=== PATIENT | female | born 1990 | race Caucasian/White ===

== ENCOUNTER 2016-06-14 01:26 | Emergency (ER) | payer OTHER ==
[~2016-06-14] VITALS: Ht 157.5 cm; Wt 67.3 kg
[~2016-06-14 01:26] MED LIST changes: -ZANTAC 7575 MG PO; -ZOFRAN 4MG T4 MG/TAB
[2016-06-14 01:35] VITALS: BP 116/63; PULSE 65; TEMP 97.8
== END 2016-06-14 02:39 | disposition home or self-care (01) ==
LOC: COL.ER 01:26
DX: S93.401A Sprain of unspecified ligament of right ankle, initial encounter (principal); W01.0XXA Fall on same level from slipping, tripping and stumbling without subsequent striking against object, initial encounter

== ENCOUNTER → 2016-06-14 | Outpatient (REF) ==
[~2016-06-14] MED LIST: ALLEGRA-D 24HR1 T24 PO; BCP; DEPAKOTE 250MG250 MG PO; EPIPEN 2-PAK1 MG/ML IM; FLEXERIL 1010 MG/TAB PO; LEXAPRO 5MG5 MG PO; LOPRESSOR 225 MG/TAB PO; MICROGESTIN 1.51 TAB PO; MIDRIN 325 MG-11 CAP PO; MULTI VITAMINS1 TAB PO; NO HOME MEDICATIONS; NORCO 325 MG-7.1 TAB PO; ONE DAILY1 TA2 PO; PHENERGAN 25 TA25 MG PO; PREDNISONE20 MG PO; QUASENSE 30 MCG1 TAB PO; SKYLA13.5 MG IY; VENTOLIN0.09 MG IH; VESTURA PO; ZANTAC 7575 MG PO; ZITHROMAX 250M250 MG PO; ZOFRAN 4MG T4 MG/TAB; ZYRTEC 10MG10 MG PO; [UNRECOGNIZED DRUG - REMARK]
== END ==
LOC: WSOH 14:35
DX: Z01.83 Encounter for blood typing (principal)

== ENCOUNTER 2016-07-11 10:56 | Outpatient (RCR) | payer OTHER | END 2016-09-06 13:28 | disposition home or self-care (01) | LOC: WSOH 10:56 | DX: S93.491D Sprain of other ligament of right ankle, subsequent encounter (principal); W18.43XD Slipping, tripping and stumbling without falling due to stepping from one level to another, subsequent encounter ==

== ENCOUNTER → 2016-07-26 | Outpatient (REF) ==
[~2016-07-26] MED LIST changes: +ZANTAC 7575 MG PO; +ZOFRAN 4MG T4 MG/TAB
== END ==
LOC: WSOH 11:15
DX: Z01.89 Encounter for other specified special examinations (principal)

== ENCOUNTER 2016-11-05 06:58 | Emergency (ER) | payer OTHER ==
[~2016-11-05] VITALS: Ht 157.5 cm; Wt 63.6 kg
[~2016-11-05 06:58] MED LIST changes: -ZANTAC 7575 MG PO; -ZOFRAN 4MG T4 MG/TAB
[2016-11-05 07:00] VITALS: BP 115/81; PULSE 61; TEMP 98.1
[2016-11-05] MEDS ORDERED: ZANTAC 7575 MG PO (07:34)
[2016-11-05] MEDS ORDERED: ZOFRAN 4MG T4 MG/TAB (07:42)
== END 2016-11-05 08:20 | disposition home or self-care (01) ==
LOC: COL.ER 06:58
DX: G43.909 Migraine, unspecified, not intractable, without status migrainosus (principal); R11.2 Nausea with vomiting, unspecified
CPT/HCPCS: J1200; J1885; J2765; J7030

== ENCOUNTER 2017-03-26 15:24 | Outpatient (CLI) | payer BC ==
[~2017-03-26] VITALS: Ht 157.5 cm; Wt 67.0 kg
[~2017-03-26 15:24] MED LIST changes: +ZANTAC 7575 MG PO; +ZOFRAN 4MG T4 MG/TAB
[2017-03-26 15:58] LABS: HEMATOCRIT 43.5 % (37.0-47.0); HEMOGLOBIN 14.4 g/dl (12.5-16.0)
[2017-03-26 16:33] VITALS: BP 106/65; PULSE 71; TEMP 97.8
[2017-03-26 17:55] VITALS: BP 106/54; PULSE 67; TEMP 98.4
== END 2017-03-26 17:55 | disposition home or self-care (01) ==
LOC: EUO 15:24
PROVIDERS: Family Medicine
DX: N93.8 Other specified abnormal uterine and vaginal bleeding (principal); I95.9 Hypotension, unspecified; R42 Dizziness and giddiness
CPT/HCPCS: J7030

== ENCOUNTER 2017-08-10 14:27 | Emergency (ER) | payer BC ==
[~2017-08-10] VITALS: Ht 157.5 cm; Wt 61.4 kg
[2017-08-10 14:35] VITALS: BP 111/65; TEMP 98.7
[2017-08-10] MEDS ORDERED: LEXAPRO 10MG10 MG PO (14:42)
[2017-08-10] MEDS ORDERED: PRENATAL 191 TAB PO (14:43)
[2017-08-10] MEDS ORDERED: ZANTAC 150MG T150 MG PO (14:43)
[2017-08-10] MEDS ORDERED: FIORICET 325 MG1 TA1 PO (14:44)
[2017-08-10 16:18] VITALS: PULSE 65
== END 2017-08-10 16:18 | disposition home or self-care (01) ==
LOC: COL.ER 14:27
DX: G43.909 Migraine, unspecified, not intractable, without status migrainosus (principal)
CPT/HCPCS: J1200; J1885; J2405; J3010; J7030

== ENCOUNTER 2017-12-01 14:09 | Emergency (ER) | payer BC ==
[~2017-12-01] VITALS: Ht 157.5 cm; Wt 62.7 kg
[~2017-12-01 14:09] MED LIST changes: +FIORICET 325 MG1 TA1 PO; +LEXAPRO 10MG10 MG PO; +PRENATAL 191 TAB PO; +ZANTAC 150MG T150 MG PO
[2017-12-01 14:13] VITALS: BP 113/81; TEMP 99
[2017-12-01] MEDS ORDERED: ZOFRAN ODT4 MG PO (16:49)
[2017-12-01 16:58] VITALS: PULSE 79
== END 2017-12-01 17:00 | disposition home or self-care (01) ==
LOC: COL.ER 14:09
DX: G43.909 Migraine, unspecified, not intractable, without status migrainosus (principal)
CPT/HCPCS: J1200; J1885; J2405; J3010; J7030

== ENCOUNTER → 2017-12-11 | Outpatient (CLI) | payer BC ==
[~2017-12-11] MED LIST changes: +ZOFRAN ODT4 MG PO
== END ==
LOC: COL.RAD 10:02
DX: Z31.41 Encounter for fertility testing (principal)
CPT/HCPCS: Q9967

== ENCOUNTER 2017-12-23 00:58 | Emergency (ER) | payer BC ==
[~2017-12-23] VITALS: Ht 157.5 cm; Wt 63.6 kg
[2017-12-23 01:01] VITALS: BP 112/87; TEMP 98
[2017-12-23] MEDS ORDERED: AMOXICILLIN 8751 TAB PO (01:03)
[2017-12-23 02:20] VITALS: PULSE 58
== END 2017-12-23 02:20 | disposition home or self-care (01) ==
LOC: COL.ER 00:58
DX: G43.909 Migraine, unspecified, not intractable, without status migrainosus (principal)
CPT/HCPCS: J1885; J2300; J2405; J7030

== ENCOUNTER 2018-03-15 12:57 | Emergency (ER) | payer BC ==
[~2018-03-15] VITALS: Ht 157.5 cm; Wt 73.2 kg
[~2018-03-15 12:57] MED LIST changes: +AMOXICILLIN 8751 TAB PO
[2018-03-15 13:25] VITALS: TEMP 97.8
[2018-03-15 14:12] LABS: BASO % 0.4 % (0.0-2.0); EOS # 0.2 (0.0-0.7); EOS % 1.6 % (0-4.0); GRAN % 70.5 % (42.2-75.2); HEMOGLOBIN 11.8 g/dl (12.5-16.0); LYMPH # 2.4 (1.2-3.4); LYMPH % 20.8 % (20.0-51.0); MEAN CELL VOLUME 91 fl (80.0-100.0); MEAN CORPUSCULAR HEMOGLOBIN 30 pg (27.0-31.0); MEAN CORPUSCULAR HGB CONC 33 g/dl (33.0-37.0); MEAN PLATELET VOLUME 10.3 fl (7.4-10.4); MONO # 0.7 (0.1-0.6); MONO % 6.1 % (1.7-9.3); PLATELET COUNT 229 K/mm3 (130-400); RED BLOOD COUNT 3.89 M/mm3 (4.10-5.30); REDCELL DISTRIBUTION WIDTH-CV 12.6 % (11.5-14.5)
[2018-03-15 14:16] LABS: HEMATOCRIT 35.4 % (37.0-47.0)
[2018-03-15 14:30] LABS: COLLECTION METHOD CLEAN CATCH
[2018-03-15 14:38] LABS: MUCOUS Present /lpf; PH 6 (5-8); SQUAMOUS EPITHELIAL 0-2 /hpf; URINE APPEARANCE Clear; URINE BACTERIA Rare /hpf; URINE BILIRUBIN Negative (NEGATIVE); URINE BLOOD Negative (NEGATIVE); URINE COLOR Yellow; URINE GLUCOSE Negative (NEGATIVE); URINE KETONE Negative (NEGATIVE); URINE LEUKOCYTE ESTERASE Negative (NEGATIVE); URINE NITRATE Negative (NEGATIVE); URINE PROTEIN(semi-quant) Negative (NEGATIVE); URINE RBC 0-2 /hpf; URINE UROBILINOGEN Negative (NEGATIVE)
[2018-03-15 15:36] VITALS: BP 105/70; PULSE 72
== END 2018-03-15 15:36 | disposition home or self-care (01) ==
LOC: COL.ER 12:57
PROVIDERS: Physician Assistant
DX: R11.10 Vomiting, unspecified (principal); R55 Syncope and collapse; G43.909 Migraine, unspecified, not intractable, without status migrainosus; Z90.89 Acquired absence of other organs
CPT/HCPCS: J2405; J7030

== ENCOUNTER → 2018-07-08 | Outpatient (RCR) | payer BC | END | disposition home or self-care (01) | LOC: WSPT → WSC 05-11 13:00 → WSPT 05-13 13:30 → WSC 05-18 13:00 → WSPT 05-20 13:00 → WSC 05-25 11:00 → WSPT 05-27 08:45 → WSC 06-01 11:00 → WSPT 06-11 11:15 → WSC 06-18 11:15 → WSPT 06-23 11:15 | DX: M54.5 Low back pain (principal); Z79.899 Other long term (current) drug therapy ==

== ENCOUNTER 2018-08-17 18:12 | Emergency (ER) | payer BC ==
[~2018-08-17] VITALS: Ht 157.5 cm; Wt 81.8 kg
[2018-08-17 18:14] VITALS: TEMP 97.8
--- NOTE | 2018-08-17 18:18 | NUR ---
Pt seen in ED for reports of vomiting x2 days. [address] Wilson. Pt denies any leaking of fluid, contractions or vaginal bleeding at this time. Pt reports normal movement. EFM and toco monitors placed. Audible movement heard. No ctx noted on toco monitors or reports by pt. See monitoring charting for FHR details.
[2018-08-17] MEDS ORDERED: CALCIUM CARBON650 M2 (18:59)
[2018-08-17] MEDS ORDERED: ZYRTEC5 MG PO (18:59)
[2018-08-17] MEDS ORDERED: PROTONIX20 MG PO (18:59)
[2018-08-17 19:06] LABS: BASO % 0.2 % (0.0-2.0); EOS # 0.2 (0.0-0.7); EOS % 1.6 % (0-4.0); GRAN # 7.6 (1.4-6.5); GRAN % 70.3 % (42.2-75.2); HEMOGLOBIN 11.6 g/dl (12.5-16.0); LYMPH # 2.1 (1.2-3.4); LYMPH % 19.3 % (20.0-51.0); MEAN CELL VOLUME 88 fl (80.0-100.0); MEAN CORPUSCULAR HEMOGLOBIN 29 pg (27.0-31.0); MEAN CORPUSCULAR HGB CONC 33 g/dl (33.0-37.0); MEAN PLATELET VOLUME 11.3 fl (7.4-10.4); MONO # 0.8 (0.1-0.6); MONO % 7.8 % (1.7-9.3); PLATELET COUNT 213 K/mm3 (130-400); RED BLOOD COUNT 3.99 M/mm3 (4.10-5.30); REDCELL DISTRIBUTION WIDTH-CV 13.6 % (11.5-14.5)
[2018-08-17 19:21] LABS: BILIRUBIN,TOTAL 0.4 mg/dL (0.0-1.0); CALCIUM 8.7 mg/dL (8.4-10.2); CREATININE, serum 0.63 (0.52-1.25); POTASSIUM 3.6 mmol/L (3.4-5.0); TOTAL PROTEIN 5.8 gm/dL (6.4-8.2)
--- NOTE | 2018-08-17 19:27 | NUR ---
192- Prolonged acceleration noted for 3 minutes with FHR up to 180's for 1 minute during acceleration. 1929- FHR return to baseline 130 with moderate variability and no decelerations. 1941- EFM strip complete and placed on pt's ED chart. No more prolonged accelerations noted. Encouraged pt to keep scheduled appointments and drink plenty of fluid to stay hydrated. Call or return to OB unit for concerns with contractions, leaking of fluid, vaginal bleeding or decreased movement.
[2018-08-17 20:29] LABS: COLLECTION METHOD CLEAN CATCH
[2018-08-17 20:44] LABS: MUCOUS Present /lpf; PH 6 (5-8); SQUAMOUS EPITHELIAL 0-2 /hpf; URINE APPEARANCE Clear; URINE BACTERIA Rare /hpf; URINE BILIRUBIN Negative (NEGATIVE); URINE BLOOD Negative (NEGATIVE); URINE COLOR Yellow; URINE GLUCOSE Negative (NEGATIVE); URINE KETONE Trace (NEGATIVE); URINE LEUKOCYTE ESTERASE Negative (NEGATIVE); URINE NITRATE Negative (NEGATIVE); URINE PROTEIN(semi-quant) Negative (NEGATIVE); URINE RBC 0-2 /hpf; URINE UROBILINOGEN Negative (NEGATIVE)
[2018-08-17] MEDS ORDERED: MACROBID 1100 MG/CAP PO (20:51)
[2018-08-17 21:02] VITALS: BP 104/72; PULSE 70
== END 2018-08-17 21:02 | disposition home or self-care (01) ==
LOC: COL.ER 18:12
PROVIDERS: Physician Assistant
DX: O26.893 Other specified pregnancy related conditions, third trimester (principal); O21.9 Vomiting of pregnancy, unspecified; Z3A.36 36 weeks gestation of pregnancy
CPT/HCPCS: J2405; J7030

== ENCOUNTER 2018-08-27 14:30 | Outpatient (RCR) | payer BC ==
[~2018-08-27 14:30] MED LIST changes: +CALCIUM CARBON650 M2; +MACROBID 1100 MG/CAP PO; +PROTONIX20 MG PO; +ZYRTEC5 MG PO
== END 2018-08-27 15:08 | disposition home or self-care (01) ==
LOC: WSPT 14:30
DX: M54.5 Low back pain (principal); M25.559 Pain in unspecified hip; R26.89 Other abnormalities of gait and mobility; Z33.1 Pregnant state, incidental

== ENCOUNTER 2018-09-10 07:04 | Inpatient (IN) | payer BC ==
[2018-09-10] VITALS (40 sets, daily range): BP systolic 102–133; BP diastolic 56–85; PULSE 64–118; TEMP 97.5–98.9
[~2018-09-10] VITALS: Ht 157.5 cm; Wt 87.3 kg
--- NOTE | 2018-09-10 07:10 | NUR ---
Patient ambulatory onto unit for scheduled induction of labor with at side. Patient oriented to room, changes into gown, plan of care discussed. Patient reports good movement, denies contractions, leaking of fluid, or vaginal bleeding. EFMs on, VS taken. IV started in left hand, labs drawn, LR infusing. Consents signed. Admission assessment completed. Pitocin started per orders. Questions answered. at bedside. Call light within reach.
--- NOTE | 2018-09-10 08:00 | NUR ---
Patient up to bathroom. Reports feeling tightening with contractions, denies pain or needs at this time. at bedside. Call light within reach.
[2018-09-10 08:02] LABS: BASO % 0.3 % (0.0-2.0); EOS # 0.3 (0.0-0.7); EOS % 2.6 % (0-4.0); GRAN # 7.8 (1.4-6.5); GRAN % 66.8 % (42.2-75.2); HEMOGLOBIN 12.9 g/dl (12.5-16.0); LYMPH # 2.9 (1.2-3.4); LYMPH % 24.3 % (20.0-51.0); MEAN CELL VOLUME 87 fl (80.0-100.0); MEAN CORPUSCULAR HEMOGLOBIN 29 pg (27.0-31.0); MEAN CORPUSCULAR HGB CONC 33 g/dl (33.0-37.0); MEAN PLATELET VOLUME 12.1 fl (7.4-10.4); MONO # 0.6 (0.1-0.6); PLATELET COUNT 223 K/mm3 (130-400); RED BLOOD COUNT 4.47 M/mm3 (4.10-5.30); REDCELL DISTRIBUTION WIDTH-CV 14.2 % (11.5-14.5)
--- NOTE | 2018-09-10 09:00 | NUR ---
Patient updated to not being able to round until lunchtime. Patient verbalizes understanding. SVE 3-//-2. Patient up to bathroom. Reports feeling cramping with contractions but denies need for pain intervention at this time. Call light within reach.
--- NOTE | 2018-09-10 10:00 | NUR ---
1000: Patient calls out requesting epidural placement. Roberto notified. 1010: Patient sitting up for epidural. Roberto POWELL at bedside. 1019: Lidocaine. 1023: Single Shot given by Roberto POWELL, no adverse reactions noted. 1024: Epidural Catheter placed. 1025: Test Dose given, no adverse reactions noted. 1030: Patient repositioned to left tilt. Plan of care discussed. Questions answered. remains at bedside. Call light within reach.
--- NOTE | 2018-09-10 11:00 | NUR ---
Patient comfortable with epidural. SROM at 1050, moderate amount of clear fluid noted. SVE /-2. Samuel catheter placed by Awa Student Nurse with assist by Maxwell SIMON. Patient repositioned to right tilt, peanut ball in place.
--- NOTE | 2018-09-10 12:30 | NUR ---
at bedside. SVE /+1. Patient repositioned to left tilt with peanut ball in place. Denies pain or pressure at this time. Encouraged to rest. at bedside. Call light within reach.
--- NOTE | 2018-09-10 14:55 | NUR ---
1320: Complete/+2. 1325: Initial push. This RN remains at bedside. 1330: notified of patient complete and pushing. 1412: notified of pushing progress, requested for delivery. 1419: at bedside for delivery. Miguel RN requested at bedside for delivery. 1432: Spontaneous vaginal delivery of viable female infant over 2nd degree laceration assisted by . Care of infant assumed by Miguel RN. Pitocin off. 1436: Spontaneous delivery of placenta. Fundus firm at D1, lochia WNL. Pitocin infusing at 333ml/hr. 2nd degree laceration repaired by using 3-[address]-1. Red joaquin catheter used to drain bladder by . 1455: Pericare performed. Ice pack in place. Recovery period started. Fundus firm, scant lochia.
[2018-09-11 04:00] VITALS: BP 114/61; PULSE 65; TEMP 97.8
[2018-09-11 07:49] VITALS: BP 112/82; PULSE 75; TEMP 98.2
[2018-09-11 07:58] LABS: HEMOGLOBIN 11.4 g/dl (12.5-16.0)
[2018-09-11] MEDS ORDERED: IBU600 MG PO (08:18)
--- NOTE | 2018-09-11 09:15 | NUR ---
Initial visit; Parents thanked Tablet Tester for offering congratulations and God's blessings for the of their daughter. Tablet Tester let them know how happy we are to have people we work with here with us for such happy occasions.
[2018-09-11 16:45] VITALS: BP 125/74; PULSE 82; TEMP 98.1
[2018-09-11 20:20] VITALS: BP 108/75; PULSE 83
[2018-09-12 09:30] VITALS: BP 122/74; PULSE 78; TEMP 98.1
--- NOTE | 2018-09-12 10:50 | NUR ---
PATIENT CALLED THIS NURSE TO THE ROOM FOR A CLOT APPROX THE SIZE OF A WALNUT. STATED SHE HADN'T GOTTEN UP YET THIS MORNING, JUST FINISHED AND NOTICED IT COMING OUT WHEN SHE WALKED TO THE BATHROOM. THIS NURSE ASSESSED CLOT. ASSESSED FUNDUS, FIRM, D1, MIDLINE. NO FREE FLOW BLEEDING NOTED AT THIS TIME. PATIENT EDUCATED ON FINDINGS AT HOME AND WHEN TO CALL [facility]. PATIENT STATED UNDERSTANDING. STILL WANTED TO D/C [facility].
== END 2018-09-12 11:15 | disposition home or self-care (01) | DRG 807 ==
LOC: LDR 07:04 → OB 23:17
PROVIDERS: ADMIT Obstetrics & Gynecology
PROC: 10E0XZZ Delivery of Products of Conception, External Approach (ICD-10-PCS; principal; 2018-09-10)
PROC: 0KQM0ZZ Repair Perineum Muscle, Open Approach (ICD-10-PCS; 2018-09-10)
PROC: 3E033VJ Introduction of Other Hormone into Peripheral Vein, Percutaneous Approach (ICD-10-PCS; 2018-09-10)
DX: O48.0 Post-term pregnancy (principal); Z37.0 Single live birth; Z3A.40 40 weeks gestation of pregnancy; O26.893 Other specified pregnancy related conditions, third trimester; Z67.91 Unspecified blood type, Rh negative; O70.1 Second degree perineal laceration during delivery; O99.344 Other mental disorders complicating childbirth; F32.9 Major depressive disorder, single episode, unspecified; K21.9 Gastro-esophageal reflux disease without esophagitis
CPT/HCPCS: J2405; J2590; J2791; J2795; J7120

== ENCOUNTER 2019-01-19 16:07 | Emergency (ER) | payer BC ==
[~2019-01-19] VITALS: Ht 157.5 cm; Wt 75.0 kg
[~2019-01-19 16:07] MED LIST changes: +IBU600 MG PO
[2019-01-19 16:11] VITALS: BP 117/82; TEMP 98.8
[2019-01-19] MEDS ORDERED: PAXIL 20MG20 MG PO (16:27)
[2019-01-19] MEDS ORDERED: FIORICET 325 MG1 TA1 PO (16:27)
[2019-01-19] MEDS ORDERED: NORCO 325 MG-51 TAB PO (16:29)
[2019-01-19] MEDS ORDERED: AMOXICILLIN 8751 TAB PO (16:29)
[2019-01-19 16:34] VITALS: PULSE 89
== END 2019-01-19 16:34 | disposition home or self-care (01) ==
LOC: COL.ER 16:07
DX: N61.0 Mastitis without abscess (principal); G43.909 Migraine, unspecified, not intractable, without status migrainosus; Z90.49 Acquired absence of other specified parts of digestive tract; Z88.1 Allergy status to other antibiotic agents

== ENCOUNTER 2019-01-31 15:10 | Emergency (ER) | payer BC ==
[~2019-01-31] VITALS: Ht 157.5 cm; Wt 75.0 kg
[~2019-01-31 15:10] MED LIST changes: +NORCO 325 MG-51 TAB PO; +PAXIL 20MG20 MG PO
[2019-01-31 15:16] VITALS: BP 114/73; TEMP 97.6
[2019-01-31 18:21] VITALS: PULSE 62
== END 2019-01-31 18:21 | disposition home or self-care (01) ==
LOC: COL.ER 15:10
DX: G43.909 Migraine, unspecified, not intractable, without status migrainosus (principal); Z90.49 Acquired absence of other specified parts of digestive tract
CPT/HCPCS: J1170; J2405; J3010; J7030

== ENCOUNTER 2019-09-03 14:14 | Emergency (ER) | payer BC ==
[~2019-09-03] VITALS: Ht 157.5 cm; Wt 70.5 kg
[2019-09-03 14:23] VITALS: TEMP 98.2
[2019-09-03 16:53] VITALS: BP 100/64; PULSE 72
== END 2019-09-03 16:58 | disposition home or self-care (01) ==
LOC: COL.ER 14:14
DX: G43.909 Migraine, unspecified, not intractable, without status migrainosus (principal); Z90.89 Acquired absence of other organs
CPT/HCPCS: J1170; J2405; J3010; J7030

== ENCOUNTER 2020-02-11 14:37 | Emergency (ER) | payer BC ==
[~2020-02-11] VITALS: Ht 157.5 cm; Wt 75.0 kg
[2020-02-11 14:54] VITALS: TEMP 97.9
[2020-02-11] MEDS ORDERED: PEPCID40 MG PO (16:16)
[2020-02-11] MEDS ORDERED: MIRENA52 MG IY (16:17)
[2020-02-11] MEDS ORDERED: PAXIL 20MG20 MG PO (16:17)
[2020-02-11 18:30] VITALS: BP 126/82; PULSE 82
== END 2020-02-11 18:30 ==
LOC: COL.ER 14:37
DX: G43.909 Migraine, unspecified, not intractable, without status migrainosus (principal); Z88.8 Allergy status to other drugs, medicaments and biological substances
CPT/HCPCS: J1170; J2405; J7030

== ENCOUNTER 2020-04-01 07:27 | Emergency (ER) | payer BC ==
[~2020-04-01] VITALS: Ht 157.5 cm; Wt 75.0 kg
[~2020-04-01 07:27] MED LIST changes: +MIRENA52 MG IY; +PEPCID40 MG PO
[2020-04-01 07:35] VITALS: TEMP 98.1
[2020-04-01 08:17] LABS: BASO % 0.3 % (0.0-2.0); EOS # 0.4 (0.0-0.7); EOS % 4.5 % (0-4.0); GRAN # 5.5 (1.4-6.5); HEMATOCRIT 40.4 % (37.0-47.0); HEMOGLOBIN 13.1 g/dl (12.5-16.0); LYMPH # 2.9 (1.2-3.4); LYMPH % 30.1 % (20.0-51.0); MEAN CELL VOLUME 91 fl (80.0-100.0); MEAN CORPUSCULAR HEMOGLOBIN 30 pg (27.0-31.0); MEAN CORPUSCULAR HGB CONC 32 g/dl (33.0-37.0); MEAN PLATELET VOLUME 10.2 fl (7.4-10.4); MONO # 0.6 (0.1-0.6); MONO % 6.7 % (1.7-9.3); PLATELET COUNT 276 K/mm3 (130-400); RED BLOOD COUNT 4.43 M/mm3 (4.10-5.30); REDCELL DISTRIBUTION WIDTH-CV 12.9 % (11.5-14.5)
[2020-04-01 08:17] LABS: COLLECTION METHOD CLEAN CATCH
[2020-04-01 08:25] LABS: ALBUMIN 4.3 gm/dL (3.5-5.0); BILIRUBIN,TOTAL 0.5 mg/dL (0.0-1.0); CALCIUM 9.3 mg/dL (8.4-10.2); CREATININE, serum 0.86 (0.52-1.25); POTASSIUM 3.8 mmol/L (3.4-5.0); TOTAL PROTEIN 6.7 gm/dL (6.4-8.2)
[2020-04-01 08:28] LABS: MUCOUS Present /lpf; PH 5 (5-8); SQUAMOUS EPITHELIAL 0-2 /hpf; URINE APPEARANCE Hazy; URINE BACTERIA Rare /hpf; URINE BILIRUBIN Negative (NEGATIVE); URINE BLOOD Negative (NEGATIVE); URINE COLOR Yellow; URINE GLUCOSE Negative (NEGATIVE); URINE KETONE Negative (NEGATIVE); URINE LEUKOCYTE ESTERASE Negative (NEGATIVE); URINE NITRATE Negative (NEGATIVE); URINE PROTEIN(semi-quant) Negative (NEGATIVE); URINE RBC 0-2 /hpf; URINE UROBILINOGEN Negative (NEGATIVE); URINE WBC 0-2 /hpf
[2020-04-01] MEDS ORDERED: VOLTAREN 75 DR75 MG PO (11:50)
[2020-04-01] MEDS ORDERED: NORCO 325 MG-51 TAB PO (11:50)
[2020-04-01] MEDS ORDERED: ZOFRAN ODT4 MG PO (12:07)
[2020-04-01 12:10] VITALS: BP 125/82; PULSE 91
== END 2020-04-01 12:10 | disposition home or self-care (01) ==
LOC: COL.ER 07:27
PROVIDERS: Emergency Medicine
DX: R10.9 Unspecified abdominal pain (principal); Z88.8 Allergy status to other drugs, medicaments and biological substances
CPT/HCPCS: J1170; J1885; J2405; J3010; J7030; Q9967

== ENCOUNTER 2020-06-03 10:12 | Emergency (ER) | payer BC ==
[~2020-06-03] VITALS: Ht 157.5 cm; Wt 77.3 kg
[~2020-06-03 10:12] MED LIST changes: +VOLTAREN 75 DR75 MG PO
[2020-06-03 10:27] VITALS: BP 114/80; TEMP 97.7
[2020-06-03] MEDS ORDERED: PEPCID40 MG PO (11:13)
[2020-06-03 13:04] VITALS: PULSE 91
== END 2020-06-03 13:01 | disposition home or self-care (01) ==
LOC: COL.ER 10:12
DX: G43.909 Migraine, unspecified, not intractable, without status migrainosus (principal); R04.0 Epistaxis; Z86.79 Personal history of other diseases of the circulatory system; Z88.8 Allergy status to other drugs, medicaments and biological substances
CPT/HCPCS: J1170; J2405; J3010; J7030

== ENCOUNTER 2020-06-23 18:56 | Emergency (ER) | payer BC ==
[~2020-06-23] VITALS: Ht 157.5 cm; Wt 77.3 kg
[2020-06-23 19:02] VITALS: TEMP 97.4
[2020-06-23 19:20] LABS: BASO # 0.1 (0.0-0.2); BASO % 0.5 % (0.0-2.0); EOS # 0.5 (0.0-0.7); EOS % 4.8 % (0-4.0); GRAN # 4.9 (1.4-6.5); GRAN % 51.8 % (42.2-75.2); HEMATOCRIT 39.8 % (37.0-47.0); HEMOGLOBIN 13.5 g/dl (12.5-16.0); LYMPH # 3.5 (1.2-3.4); LYMPH % 36.7 % (20.0-51.0); MEAN CELL VOLUME 88 fl (80.0-100.0); MEAN CORPUSCULAR HEMOGLOBIN 30 pg (27.0-31.0); MEAN CORPUSCULAR HGB CONC 34 g/dl (33.0-37.0); MONO # 0.6 (0.1-0.6); MONO % 5.9 % (1.7-9.3); PLATELET COUNT 345 K/mm3 (130-400); RED BLOOD COUNT 4.54 M/mm3 (4.10-5.30); REDCELL DISTRIBUTION WIDTH-CV 12.3 % (11.5-14.5)
[2020-06-23 19:35] LABS: ALBUMIN 4.6 gm/dL (3.5-5.0); BILIRUBIN,TOTAL 0.3 mg/dL (0.0-1.0); C-REACTIVE PROTEIN 0.7 mg/dL (0.0-0.9); CALCIUM 9.6 mg/dL (8.4-10.2); CREATININE, serum 0.81 (0.52-1.25); TOTAL PROTEIN 7.7 gm/dL (6.4-8.2)
[2020-06-23] MEDS ORDERED: PROTONIX20 MG PO (19:48)
[2020-06-23 19:49] LABS: COLLECTION METHOD CLEAN CATCH
[2020-06-23 19:55] LABS: PH 8 (5-8); SQUAMOUS EPITHELIAL 0-2 /hpf; URINE APPEARANCE Clear; URINE BACTERIA None Seen /hpf; URINE BILIRUBIN Negative (NEGATIVE); URINE BLOOD Negative (NEGATIVE); URINE COLOR Yellow; URINE GLUCOSE Negative (NEGATIVE); URINE KETONE Negative (NEGATIVE); URINE LEUKOCYTE ESTERASE Negative (NEGATIVE); URINE NITRATE Negative (NEGATIVE); URINE PROTEIN(semi-quant) Negative (NEGATIVE); URINE RBC 0-2 /hpf; URINE UROBILINOGEN Negative (NEGATIVE)
[2020-06-23 23:10] VITALS: BP 123/84; PULSE 81
== END 2020-06-23 23:10 | disposition home or self-care (01) ==
LOC: COL.ER 18:56
PROVIDERS: Nurse Practitioner
DX: O26.891 Other specified pregnancy related conditions, first trimester (principal); R10.31 Right lower quadrant pain; R00.0 Tachycardia, unspecified; Z3A.00 Weeks of gestation of pregnancy not specified; Z86.79 Personal history of other diseases of the circulatory system; Z88.8 Allergy status to other drugs, medicaments and biological substances
CPT/HCPCS: J1170; J2405; J2550; J2791; J3010; J7030

== ENCOUNTER 2020-06-24 21:45 | Emergency (ER) | payer BC ==
[~2020-06-24] VITALS: Ht 157.5 cm; Wt 77.3 kg
[2020-06-24 21:57] VITALS: TEMP 98.5
[2020-06-24 22:28] LABS: COLLECTION METHOD CLEAN CATCH
[2020-06-24 22:32] LABS: BASO # 0.1 (0.0-0.2); BASO % 0.6 % (0.0-2.0); EOS # 0.6 (0.0-0.7); EOS % 5.8 % (0-4.0); GRAN # 4.7 (1.4-6.5); GRAN % 49.6 % (42.2-75.2); HEMATOCRIT 39.2 % (37.0-47.0); HEMOGLOBIN 12.9 g/dl (12.5-16.0); LYMPH # 3.5 (1.2-3.4); LYMPH % 36.8 % (20.0-51.0); MEAN CELL VOLUME 91 fl (80.0-100.0); MEAN CORPUSCULAR HEMOGLOBIN 30 pg (27.0-31.0); MEAN CORPUSCULAR HGB CONC 33 g/dl (33.0-37.0); MEAN PLATELET VOLUME 9.8 fl (7.4-10.4); MONO # 0.7 (0.1-0.6); PLATELET COUNT 317 K/mm3 (130-400); RED BLOOD COUNT 4.33 M/mm3 (4.10-5.30); REDCELL DISTRIBUTION WIDTH-CV 12.5 % (11.5-14.5)
[2020-06-24 22:37] LABS: PH 7 (5-8); SQUAMOUS EPITHELIAL 0-2 /hpf; URINE APPEARANCE Clear; URINE BACTERIA None Seen /hpf; URINE BILIRUBIN Negative (NEGATIVE); URINE BLOOD 1+ (NEGATIVE); URINE COLOR Straw; URINE GLUCOSE Negative (NEGATIVE); URINE KETONE Negative (NEGATIVE); URINE LEUKOCYTE ESTERASE Negative (NEGATIVE); URINE NITRATE Negative (NEGATIVE); URINE PROTEIN(semi-quant) Negative (NEGATIVE); URINE RBC 0-2 /hpf; URINE UROBILINOGEN Negative (NEGATIVE)
[2020-06-24 22:44] LABS: ALBUMIN 4.3 gm/dL (3.5-5.0); BILIRUBIN,TOTAL 0.4 mg/dL (0.0-1.0); C-REACTIVE PROTEIN 0.6 mg/dL (0.0-0.9); CALCIUM 8.8 mg/dL (8.4-10.2); CREATININE, serum 0.89 (0.52-1.25); TOTAL PROTEIN 7.1 gm/dL (6.4-8.2)
[2020-06-25 00:25] VITALS: BP 115/74; PULSE 100
== END 2020-06-25 00:30 | disposition short-term general hospital (02) ==
LOC: COL.ER 21:45
PROVIDERS: Nurse Practitioner Primary Care
DX: O26.891 Other specified pregnancy related conditions, first trimester (principal); R10.31 Right lower quadrant pain; O21.9 Vomiting of pregnancy, unspecified; Z3A.00 Weeks of gestation of pregnancy not specified; Z88.8 Allergy status to other drugs, medicaments and biological substances
CPT/HCPCS: J2550; J3010

== ENCOUNTER 2020-06-26 21:41 | Observation (INO) | payer BC ==
[~2020-06-26] VITALS: Ht 157.5 cm; Wt 77.3 kg
[2020-06-26 23:43] LABS: BASO % 0.4 % (0.0-2.0); EOS # 0.6 (0.0-0.7); EOS % 5.5 % (0-4.0); GRAN % 49.3 % (42.2-75.2); HEMATOCRIT 38.7 % (37.0-47.0); HEMOGLOBIN 12.9 g/dl (12.5-16.0); LYMPH # 3.8 (1.2-3.4); LYMPH % 37.8 % (20.0-51.0); MEAN CELL VOLUME 88 fl (80.0-100.0); MEAN CORPUSCULAR HEMOGLOBIN 29 pg (27.0-31.0); MEAN CORPUSCULAR HGB CONC 33 g/dl (33.0-37.0); MEAN PLATELET VOLUME 9.7 fl (7.4-10.4); MONO # 0.7 (0.1-0.6); MONO % 6.7 % (1.7-9.3); PLATELET COUNT 303 K/mm3 (130-400); REDCELL DISTRIBUTION WIDTH-CV 12.2 % (11.5-14.5)
[2020-06-26 23:58] LABS: ALANINE AMINOTRANSFERASE 21 U/L (4-34); ALBUMIN 4.4 gm/dL (3.5-5.0); ALKALINE PHOSPHATASE 77 U/L (50-136); ANION GAP 7 mmol/L (7-16); AST,SGOT 28 U/L (15-37); BILIRUBIN,TOTAL 0.2 mg/dL (0.0-1.0); BLOOD UREA NITROGEN 13 mg/dL (7-17); CALCIUM 9.5 mg/dL (8.4-10.2); CARBON DIOXIDE 29 mmol/L (22-30); CHLORIDE 101 mmol/L (98-107); CREATININE, serum 0.75 (0.52-1.25); GLUCOSE 95 mg/dL (74-106); SODIUM 137 mmol/L (137-145)
[2020-06-27] VITALS (7 sets, daily range): BP systolic 108–117; BP diastolic 67–82; PULSE 99–110; TEMP 98.3
[2020-06-27] LABS: C-REACTIVE PROTEIN < 0.5 mg/dL (0.0-0.9)
[2020-06-27 00:05] LABS: HCG,QUANTITATIVE 250 mIU/mL (0-5)
[2020-06-27] MEDS ORDERED: MOTRIN 800800 MG/TAB PO (01:02)
[2020-06-27] MEDS ORDERED: PERCOCET 325 MG1 TA2 PO (01:02)
--- NOTE | 2020-06-27 03:10 | NUR ---
PT ARRIVED TO UNIT VIA BED FROM PACU, PT A&OX3. REPORT RECEIVED FROM ALFRED BARKER. PT HAS 2 PUNCTURE SITES, ONE OVER UMBILICUS HAS BAND-AID , ONE ON LOWER LEFT ABDOMEN HAS STERI STRIPS AND BAND-AID, BOTH CDI. PT RATES GENERAL PAIN AT 3/10 BUT PAIN AT LEFT ABDOMINAL POKE SITE AT 10/10. WILL PROVIDE PAIN MEDICATION. PERIPAD AND MESH UNDERWEAR ON, SCANT BLEEDING NOTED TO PAD. PT REQUEST TO TAKE MEDICATIONS FOR GERD AT THIS TIME. WILL CONTACT PHYSICIAN FOR ORDERS.
--- NOTE | 2020-06-27 08:21 | NUR ---
Pt changed into own clothes, INT removed and bandaid placed. Pt escorted off unit to waiting at ER entrance.
== END 2020-06-27 08:15 | disposition home or self-care (01) ==
LOC: COL.ER 21:41 → OB 06-27 00:14
PROVIDERS: Nurse Practitioner; ADMIT Obstetrics & Gynecology
DX: N83.9 Noninflammatory disorder of ovary, fallopian tube and broad ligament, unspecified (principal); N93.9 Abnormal uterine and vaginal bleeding, unspecified; R89.1 Abnormal level of hormones in specimens from other organs, systems and tissues; G43.909 Migraine, unspecified, not intractable, without status migrainosus; I47.1 Supraventricular tachycardia; K21.9 Gastro-esophageal reflux disease without esophagitis; E66.9 Obesity, unspecified; F32.9 Major depressive disorder, single episode, unspecified; Z90.89 Acquired absence of other organs; Z88.8 Allergy status to other drugs, medicaments and biological substances; Z91.018 Allergy to other foods; Z79.02 Long term (current) use of antithrombotics/antiplatelets; Z79.899 Other long term (current) drug therapy; Z80.41 Family history of malignant neoplasm of ovary
CPT/HCPCS: A4315; G0378; J0690; J1100; J1170; J1885; J2270; J2405; J2704; J3010; J7030

== ENCOUNTER 2020-07-06 16:54 | Emergency (ER) | payer BC ==
[~2020-07-06] VITALS: Ht 157.5 cm; Wt 77.3 kg
[~2020-07-06 16:54] MED LIST changes: +MOTRIN 800800 MG/TAB PO; +PERCOCET 325 MG1 TA2 PO
[2020-07-06 17:15] VITALS: TEMP 98.9
[2020-07-06 18:08] LABS: BASO # 0.1 (0.0-0.2); BASO % 0.4 % (0.0-2.0); EOS # 0.1 (0.0-0.7); EOS % 0.6 % (0-4.0); GRAN # 11.9 (1.4-6.5); GRAN % 82.9 % (42.2-75.2); HEMATOCRIT 44.1 % (37.0-47.0); HEMOGLOBIN 14.2 g/dl (12.5-16.0); LYMPH # 1.7 (1.2-3.4); LYMPH % 11.9 % (20.0-51.0); MEAN CELL VOLUME 92 fl (80.0-100.0); MEAN CORPUSCULAR HEMOGLOBIN 30 pg (27.0-31.0); MEAN CORPUSCULAR HGB CONC 32 g/dl (33.0-37.0); MEAN PLATELET VOLUME 9.9 fl (7.4-10.4); MONO # 0.5 (0.1-0.6); MONO % 3.6 % (1.7-9.3); PLATELET COUNT 349 K/mm3 (130-400); RED BLOOD COUNT 4.82 M/mm3 (4.10-5.30); REDCELL DISTRIBUTION WIDTH-CV 12.6 % (11.5-14.5)
[2020-07-06 18:18] LABS: ALBUMIN 4.9 gm/dL (3.5-5.0); BILIRUBIN,TOTAL 0.6 mg/dL (0.0-1.0); C-REACTIVE PROTEIN 0.6 mg/dL (0.0-0.9); CALCIUM 9.7 mg/dL (8.4-10.2); CREATININE, serum 0.85 (0.52-1.25); POTASSIUM 4.3 mmol/L (3.4-5.0); TOTAL PROTEIN 7.9 gm/dL (6.4-8.2)
[2020-07-06 21:15] VITALS: BP 112/70; PULSE 80
== END 2020-07-06 21:15 | disposition home or self-care (01) ==
LOC: COL.ER 16:54
PROVIDERS: Nurse Practitioner
DX: G89.18 Other acute postprocedural pain (principal); R11.2 Nausea with vomiting, unspecified; Z88.8 Allergy status to other drugs, medicaments and biological substances
CPT/HCPCS: J1170; J1200; J2405; J2550; J3010; J7030; Q9967

== ENCOUNTER 2020-08-08 17:09 | Emergency (ER) | payer BC ==
[~2020-08-08] VITALS: Ht 157.5 cm; Wt 72.7 kg
[2020-08-08 17:14] VITALS: TEMP 98.4
[2020-08-08 19:45] VITALS: BP 126/72; PULSE 82
== END 2020-08-08 19:45 | disposition home or self-care (01) ==
LOC: COL.ER 17:09
DX: G43.909 Migraine, unspecified, not intractable, without status migrainosus (principal); Z88.8 Allergy status to other drugs, medicaments and biological substances
CPT/HCPCS: J1200; J1885; J2550; J7030

== ENCOUNTER 2020-09-22 22:17 | Emergency (ER) | payer BC ==
[2020-09-22 23:08] VITALS: TEMP 98.5
[2020-09-23 01:53] VITALS: BP 118/86; PULSE 106
== END 2020-09-23 01:51 | disposition home or self-care (01) ==
LOC: COL.ER 22:17
DX: G43.111 Migraine with aura, intractable, with status migrainosus (principal); J45.909 Unspecified asthma, uncomplicated; Z88.8 Allergy status to other drugs, medicaments and biological substances
CPT/HCPCS: J1170; J1200; J2405; J3010; J7030

== ENCOUNTER 2020-09-26 19:27 | Emergency (ER) | payer BC ==
[~2020-09-26] VITALS: Ht 157.5 cm; Wt 77.3 kg
[2020-09-27 00:15] VITALS: BP 104/68; PULSE 95; TEMP 97.6
== END 2020-09-27 00:15 | disposition home or self-care (01) ==
LOC: COL.ER 19:27
DX: O20.0 Threatened abortion (principal); Z3A.00 Weeks of gestation of pregnancy not specified
CPT/HCPCS: J2405; J2550; J7030

== ENCOUNTER 2020-11-02 11:13 | Emergency (ER) | payer BC ==
[~2020-11-02] VITALS: Ht 157.5 cm; Wt 82.3 kg
[2020-11-02 11:40] VITALS: TEMP 97
[2020-11-02 12:15] LABS: BASO % 0.3 % (0.0-2.0); EOS # 0.4 (0.0-0.7); EOS % 4.6 % (0-4.0); GRAN # 5.8 (1.4-6.5); GRAN % 66.5 % (42.2-75.2); HEMATOCRIT 37.2 % (37.0-47.0); HEMOGLOBIN 12.6 g/dl (12.5-16.0); LYMPH # 1.7 (1.2-3.4); MEAN CELL VOLUME 87 fl (80.0-100.0); MEAN CORPUSCULAR HEMOGLOBIN 29 pg (27.0-31.0); MEAN CORPUSCULAR HGB CONC 34 g/dl (33.0-37.0); MEAN PLATELET VOLUME 10.4 fl (7.4-10.4); MONO # 0.8 (0.1-0.6); MONO % 9.3 % (1.7-9.3); PLATELET COUNT 280 K/mm3 (130-400); REDCELL DISTRIBUTION WIDTH-CV 13.1 % (11.5-14.5)
[2020-11-02 12:35] LABS: ALBUMIN 4.1 gm/dL (3.5-5.0); BILIRUBIN,TOTAL 0.2 mg/dL (0.0-1.0); CALCIUM 9.2 mg/dL (8.4-10.2); CREATININE, serum 0.53 (0.52-1.25); MAGNESIUM 1.8 mg/dL (1.6-2.3); POTASSIUM 3.4 mmol/L (3.4-5.0); TOTAL PROTEIN 7.3 gm/dL (6.4-8.2)
[2020-11-02 13:35] VITALS: BP 111/68; PULSE 89
== END 2020-11-02 13:35 | disposition home or self-care (01) ==
LOC: COL.ER 11:13
PROVIDERS: Emergency Medicine
DX: O21.0 Mild hyperemesis gravidarum (principal); O20.0 Threatened abortion; Z3A.10 10 weeks gestation of pregnancy
CPT/HCPCS: J2765; J7120

== ENCOUNTER 2021-01-12 21:06 | Emergency (ER) | payer BC ==
[~2021-01-12] VITALS: Ht 157.5 cm; Wt 81.8 kg
[2021-01-12 21:30] VITALS: TEMP 98.5
[2021-01-12 22:30] VITALS: BP 101/70; PULSE 82
== END 2021-01-12 22:39 | disposition home or self-care (01) ==
LOC: COL.ER 21:06
DX: S91.311A Laceration without foreign body, right foot, initial encounter (principal); F32.9 Major depressive disorder, single episode, unspecified; J45.909 Unspecified asthma, uncomplicated; Z79.899 Other long term (current) drug therapy; W23.1XXA Caught, crushed, jammed, or pinched between stationary objects, initial encounter

== ENCOUNTER 2021-05-20 08:20 | Inpatient (IN) | payer BC ==
[~2021-05-20] VITALS: Ht 157.5 cm; Wt 85.9 kg
[2021-05-20] VITALS (35 sets, daily range): BP systolic 76–112; BP diastolic 43–75; PULSE 50–100; TEMP 98.1–99
[2021-05-20] MEDS ORDERED: LEXAPRO 10MG10 MG PO (08:42)
--- NOTE | 2021-05-20 09:00 | NUR ---
0825- Pt arrives on unit ambulatory with complaints of vaginal bleeding. Pt into bathroom to change into gown. 0828- This RN at bedside. Pt into bed, EFM and TOCO on and tracing well. VSS. Pt states when she got out of bed this morning she passed "2 fist sized clots". She denies regular contractions but is having cramping, denies LOF. Pt unsure about movement this morning but states baby was moving at 0500 when she got up to void, no bleeding per Pt at that time. Assessment completed. 0850- Pt takes underwear/peripad off, blood noted on 40% of pad. SVE 5/80/-2, moderate amount of bright red blood noted on exam glove. 0855- Dr Julian notified, see physician notification.
--- NOTE | 2021-05-20 09:30 | NUR ---
0922- Dr Julian at bedside, discusses POC, bleeding. Quesions answered.
[2021-05-20 10:00] LABS: BASO % 0.2 % (0.0-2.0); EOS # 0.3 K/mm3 (0.0-0.7); EOS % 2.7 % (0.0-4.0); GRAN # 7.2 K/mm3 (1.4-6.5); GRAN % 72.6 % (42.2-75.2); HEMATOCRIT 39.1 % (37.0-47.0); HEMOGLOBIN 13.1 g/dl (12.5-16.0); LYMPH # 1.8 K/mm3 (1.2-3.4); MEAN CELL VOLUME 83 fl (80.0-100.0); MEAN CORPUSCULAR HEMOGLOBIN 28 pg (27-31); MEAN CORPUSCULAR HGB CONC 34 g/dl (33.0-37.0); MONO # 0.6 K/mm3 (0.1-0.6); MONO % 5.7 % (1.7-9.3); PLATELET COUNT 261 K/mm3 (130-400); RED BLOOD COUNT 4.73 M/mm3 (4.10-5.30); REDCELL DISTRIBUTION WIDTH-CV 13.2 % (11.5-14.5)
--- NOTE | 2021-05-20 10:15 | NUR ---
0959- Pt sitting on side of bed for epidural placment. Michelle Hyatt CRNA at bedside. 1007- Test dose, see anethesia record. 1011- Pt assisted to semi-fowlers with WL. EFM and TOCO adjusted.
--- NOTE | 2021-05-20 11:00 | NUR ---
1050- Pt calls out, asking for Zofran. RN reviews BP at nurses station, Zofran and Ephedrine brought to bedside. IVF bolus initiated. Pt states she pressed her epidural button and became nauseous. See EMAR for medication administration. HOB lowered, Pt repositioned to for Pt comfort. 1110- L.Olena, STONEHAND at bedside and updated on BPs and meds given. STONEHAND and RN to bedside.
--- NOTE | 2021-05-20 12:00 | NUR ---
1146- AROM by Dr Julian, clear fluid noted with bloody show. FHR tachycardia noted immediately after exam, 200bpm noted to be the highest but mainly 180-195bpm for approx 11mins with intermittent attempts to return to baseline. MD remains at nurses station, reviews strip. 1156- Pt repositioned to RL, EFM and TOCO adjusted. 1158- FHR down to 130bpm for 60secs before returning to 190bpm for another 5mins before slowly returning to baseline of 135bpm over approx 90secs. 1202- SVE by this RN, unchanged from previous exam. Pt assisted to RL positiion.
--- NOTE | 2021-05-20 13:45 | NUR ---
Rests in bed, alert. States just moved the left side. Adjusts ultra sound, heart rate 140s.
--- NOTE | 2021-05-20 14:08 | NUR ---
Vag check done, patient complete. 1410 Dr. Julian called and updated that patient complete and plus two. States will be coming up. 1418 Dr. Julian here, prepped for delivery. Pushes with contractions. 1427 Spontaneous delivery of baby girl by Dr. Julian. 1430 Spontaneous delivery of placenta by Dr. Julian. Pitocin infusing at 333ccs an hour as ordered and per policy.
[2021-05-21 00:53] VITALS: BP 109/67; PULSE 63; TEMP 97.8
[2021-05-21 03:06] VITALS: BP 128/83; PULSE 65; TEMP 97.6
[2021-05-21 08:15] VITALS: BP 103/74; PULSE 66; TEMP 97.5
[2021-05-21] MEDS ORDERED: PERCOCET 325 MG1 TA2 PO (08:44)
[2021-05-21] MEDS ORDERED: IBU800 M1 PO (08:44)
--- NOTE | 2021-05-21 09:15 | NUR ---
Initial visit attempt; Family resting, Airplane Electrical Repairer left card of congratulations for the of their daughter and information regarding the availability of [facility] at our hospital.
[2021-05-21 12:30] VITALS: BP 111/67; PULSE 65; TEMP 97.6
== END 2021-05-21 16:15 | disposition home or self-care (01) | DRG 807 ==
LOC: LDRO 08:20 → LDR 08:25 → LDRO 08:26 → LDR 08:27 → OB 08:27
PROVIDERS: ADMIT Obstetrics & Gynecology
PROC: 10E0XZZ Delivery of Products of Conception, External Approach (ICD-10-PCS; principal; 2021-05-20)
PROC: 0KQM0ZZ Repair Perineum Muscle, Open Approach (ICD-10-PCS; 2021-05-20)
PROC: 10907ZC Drainage of Amniotic Fluid, Therapeutic from Products of Conception, Via Natural or Artificial Opening (ICD-10-PCS; 2021-05-20)
DX: O99.344 Other mental disorders complicating childbirth (principal); Z37.0 Single live birth; F32.A Depression, unspecified; O26.893 Other specified pregnancy related conditions, third trimester; Z67.41 Type O blood, Rh negative; O70.1 Second degree perineal laceration during delivery; Z23 Encounter for immunization; Z3A.38 38 weeks gestation of pregnancy
CPT/HCPCS: J2405; J2590; J2791; J7120

== ENCOUNTER → 2021-08-14 | Outpatient (CLI) | payer BC ==
[~2021-08-14] MED LIST changes: +IBU800 M1 PO
== END ==
LOC: COL.RAD 08:15
DX: R10.11 Right upper quadrant pain (principal)

== ENCOUNTER 2021-08-22 15:08 | Emergency (ER) | payer BC ==
[~2021-08-22] VITALS: Ht 157.5 cm; Wt 75.0 kg
[2021-08-22 15:18] VITALS: TEMP 98.5
[2021-08-22 15:54] LABS: BASO # 0.1 K/mm3 (0.0-0.2); BASO % 0.6 % (0.0-2.0); EOS # 1.3 K/mm3 (0.0-0.7); EOS % 12.9 % (0.0-4.0); GRAN # 5.2 K/mm3 (1.4-6.5); GRAN % 52.9 % (42.2-75.2); HEMATOCRIT 40.3 % (37.0-47.0); HEMOGLOBIN 13.4 g/dl (12.5-16.0); LYMPH # 2.7 K/mm3 (1.2-3.4); LYMPH % 27.6 % (20.0-51.0); MEAN CELL VOLUME 84 fl (80.0-100.0); MEAN CORPUSCULAR HEMOGLOBIN 28 pg (27-31); MEAN CORPUSCULAR HGB CONC 33 g/dl (33.0-37.0); MEAN PLATELET VOLUME 10.1 fl (7.4-10.4); MONO # 0.6 K/mm3 (0.1-0.6); MONO % 5.8 % (1.7-9.3); PLATELET COUNT 357 K/mm3 (130-400); RED BLOOD COUNT 4.81 M/mm3 (4.10-5.30); REDCELL DISTRIBUTION WIDTH-CV 13.5 % (11.5-14.5)
[2021-08-22 16:16] LABS: ALBUMIN 4.5 gm/dL (3.5-5.0); BILIRUBIN,TOTAL 0.6 mg/dL (0.2-1.2); C-REACTIVE PROTEIN 0.27 mg/dL (0.00-0.50); CALCIUM 9.4 mg/dL (8.4-10.2); CREATININE, serum 1.09 mg/dL (0.57-1.11); POTASSIUM 3.9 mmol/L (3.5-4.5); TOTAL PROTEIN 7.2 gm/dL (6.2-8.1)
[2021-08-22] MEDS ORDERED: NORCO 325 MG-7.1 TAB PO (16:53)
[2021-08-22 17:19] VITALS: BP 118/84; PULSE 71
== END 2021-08-22 17:19 | disposition home or self-care (01) ==
LOC: COL.ER 15:08
PROVIDERS: Physician Assistant
DX: R10.11 Right upper quadrant pain (principal); R11.2 Nausea with vomiting, unspecified; Z32.02 Encounter for pregnancy test, result negative
CPT/HCPCS: J1885; J2270; J2405; J3010

== ENCOUNTER → 2021-08-24 | Outpatient (CLI) | payer BC | LOC: COL.RAD 09:52 | DX: R10.11 Right upper quadrant pain (principal) | CPT/HCPCS: A9537 ==

== ENCOUNTER 2021-10-10 08:34 | Day surgery (SDC) | payer BC ==
[~2021-10-10] VITALS: Ht 157.5 cm; Wt 77.4 kg
[2021-10-10] VITALS (7 sets, daily range): BP systolic 105–116; BP diastolic 65–75; PULSE 61–70; TEMP 97.4–97.5
[~2021-10-10 08:34] MED LIST changes: +PRENATAL 191 CTB PO; -PRENATAL 191 TAB PO
[2021-10-10] MEDS ORDERED: PEPCID40 MG PO (09:20)
[2021-10-10] MEDS ORDERED: NORCO 325 MG-51 TAB PO (10:49)
--- NOTE | 2021-10-10 12:00 | NUR ---
Patient returns to room 7 per cart from PACU accompanied by Araceli RN and is awake and alert. Exofin skin glue covering incisions x4 on abdomen with wound edges well approximated. IV fluids infusing and site is free of redness. Encouraged to rest. Lights off and spouse is at bedside. Siderails up x2 and call light in reach.
--- NOTE | 2021-10-10 12:15 | NUR ---
Resting and offers no complaints of pain or nausea.
--- NOTE | 2021-10-10 12:30 | NUR ---
Continues to rest with eyes closed when not disturbed. Spouse remains at bedside.
--- NOTE | 2021-10-10 12:45 | NUR ---
Continues to rest without complaints of pain or nausea.
--- NOTE | 2021-10-10 13:00 | NUR ---
Awake and IV to INT. Assisted up to the bathroom. Able to void and returns to room.
--- NOTE | 2021-10-10 13:05 | NUR ---
Eating crackers and sipping on Sprite.
--- NOTE | 2021-10-10 13:30 | NUR ---
INT discontinued and site is free of redness. Patient dresses self.
--- NOTE | 2021-10-10 13:57 | NUR ---
Patient dressed and given dismissal instructions. Patient voices understanding of these. Instructed that script was sent to the pharmacy.
--- NOTE | 2021-10-10 14:00 | NUR ---
Patient dismissed to home driven by spouse per private vehicle and taken to the front door per wheelchair and assisted into vehicle with dismissal instructions in hand.
== END 2021-10-10 14:00 | disposition home or self-care (01) ==
LOC: SDCO 08:34
DX: K81.1 Chronic cholecystitis (principal); Z79.899 Other long term (current) drug therapy
CPT/HCPCS: J0330; J1100; J1170; J1885; J2250; J2405; J2704; J3010; J7120

== ENCOUNTER 2021-12-13 10:24 | Emergency (ER) | payer BC ==
[~2021-12-13] VITALS: Ht 157.5 cm; Wt 75.0 kg
[2021-12-13 10:52] VITALS: TEMP 98.1
[2021-12-13 12:42] VITALS: BP 112/80; PULSE 63
== END 2021-12-13 12:42 | disposition home or self-care (01) ==
LOC: COL.ER 10:24
DX: G43.909 Migraine, unspecified, not intractable, without status migrainosus (principal)
CPT/HCPCS: J0780; J1100; J1200; J1885; J7120

== ENCOUNTER 2022-06-01 13:39 | Emergency (ER) | payer BC ==
[~2022-06-01] VITALS: Ht 157.5 cm; Wt 72.7 kg
[2022-06-01] MEDS ORDERED: [UNRECOGNIZED DRUG - MIXTURE] (13:55)
[2022-06-01] MEDS ORDERED: NURTEC ODT75 MG PO (13:55)
[2022-06-01 16:25] VITALS: BP 111/77; PULSE 90; TEMP 97.6
== END 2022-06-01 16:25 | disposition home or self-care (01) ==
LOC: COL.ER 13:39
DX: G43.909 Migraine, unspecified, not intractable, without status migrainosus (principal)
CPT/HCPCS: J0595; J2405; J7030